=== PATIENT | female | born 2000 | race Caucasian/White ===

== ENCOUNTER 2023-12-11 22:06 | Emergency (ER) | payer OTHER, SELFPAY ==
[2023-12-11 22:15] VITALS: BP 118/78; PULSE 102; RESP 20; TEMP 36.9; O2SAT 100; BMI 25.0
--- NOTE | 2023-12-11 22:44 | ED.GENADULT ---
HPI - General Adult General Chief complaint: Unspecified Complaint, Adult Stated complaint: Swelling post shot L shoulder Time Seen by Provider: 12/11/23 22:29 History of Present Illness HPI narrative: This 23-year-old female comes in with pain, redness, and swelling with warmth in her left upper arm around the area where she received a pneumonia vaccination yesterday. She has an area of erythema that is approximately 8 cm in diameter around the area where the injection was placed. There is increased warmth and some swelling. She does not report any fevers. She states that her arm is painful in this area. Related Data Home Medications ?Medication ?Instructions ?Recorded ?Confirmed norgestimate-ethinyl estradiol 1 tab PO DAILY 12/11/23 12/11/23 0.18 mg/0.215mg/0.25mg-35 mcg(28)tablet (Tri-Catrachita) Allergies Allergy/AdvReac Type Severity Reaction Status Date / Time No Known Drug Allergies Allergy Verified 12/11/23 22:20 Review of Systems Status of ROS: Reports: 10 or more systems reviewed and unremarkable except as noted in History and below Narrative: Constitutional: No fevers, no weight gain or loss. Eyes: No discharge. No vision changes. HENT: No congestion, no sore throat, no ear pain. Cardiovascular: No chest pain, no palpitations. Respiratory: No shortness of breath, no wheezes, no cough. Gastrointestinal: No abdominal pain, no vomiting, no diarrhea. Genitourinary: No dysuria, no hematuria. Musculoskeletal: Normal range of motion. Skin: No rashes, no pruritis. Neurological: No dizziness, weakness, sensory change, speech change. Endo/Heme/Allergies: No bruising or bleeding. No polydipsia. Pysch: no suicidality, no anxiety, no insomnia. All other systems reviewed and are negative. Exam Narrative: Exam Narrative: Constitutional: Well-developed, well-nourished, no acute distress. HEENT: Normocephalic, atraumatic. Neck: Normal range of motion. Nontender. Supple. Heart: Intact distal pulses. Lungs: No chest discomfort. No wheezes, rhonchi, or rales. Abdomen: Nontender. Back: Normal range of motion. Extremities: Normal range of motion. Left upper extremity overlying the deltoid muscle has an area of erythema with increased warmth and mild swelling typical of cellulitis. This occupies an area approximately 8 cm in diameter. Skin: Intact. No rash. Warm. No erythema or pallor. Neurologic: No altered sensation. No weakness. Alert and oriented. Psychiatric: No suicidality. No anxiety or depression. No insomnia. Nursing notes and vitals signs are reviewed. Const: Vital Signs, click to edit/add: Vital Signs - 24 hr 12/11/23 22:15 Temperature 98.5 F Pulse Rate [Pulse Oximeter] 102 H Respiratory Rate 20 Blood Pressure [Ri ght Upper Arm] 118/78 Pulse Oximetry 100 Oxygen Delivery Me thod Room Air Course Vital Signs Vital signs: Initial Vital Signs Temperature 98.5 F 12/11/23 22:15 Temperature Source Temporal Artery Scan 12/11/23 22:15 Pulse Rate 102 H 12/11/23 22:15 Respiratory Rate 20 12/11/23 22:15 Blood Pressure 118/78 12/11/23 22:15 Blood Pressure Mean 91 12/11/23 22:15 Blood Pressure Position Sitting 12/11/23 22:15 Pulse Oximetry 100 12/11/23 22:15 Oxygen Delivery Method Room Air 12/11/23 22:15 Vital Signs Temperature 98.5 F 12/11/23 22:15 Pulse Rate 102 H 12/11/23 22:15 Respiratory Rate 20 12/11/23 22:15 Blood Pressure 118/78 12/11/23 22:15 Pulse Oximetry 100 12/11/23 22:15 Oxygen Delivery Method Room Air 12/11/23 22:15 Temperature 98.5 F 12/11/23 22:15 Pulse Rate 102 H 12/11/23 22:15 Respiratory Rate 12/11/23 22:15 Blood Pressure 118/78 12/11/23 22:15 Pulse Oximetry 100 12/11/23 22:15 Oxygen Delivery Method Room Air 12/11/23 22:15 Medical Decision Making MDM Narrative Medical decision making narrative: This patient has some sort of reaction to an injection that occurred yesterday. It could be an allergic reaction but it does show more suspicious and typical findings of a cellulitis. The patient received an [employer] prescription for Keflex. I described signs and symptoms of worsening condition that would indicate a need for return and re-evaluation. Discharge Plan Discharge Clinical Impression: Cellulitis Patient Disposition: Home, Self-Care Condition: Stable Additional Instructions: Take medication as prescribed. Use pres-oxm-rldozlb medicines for pain relief also as needed and directed. Return if worsening. Prescriptions: No Action norgestimate-ethinyl estradiol [Tri-Catrachita] 0.18/0.215/0.25 mg-35 mcg (28) tablet 1 tab PO DAILY Follow Up/Referrals: Provider,Not a Local [Primary Care Provider] - Stand Alone Forms: Garmentory Info Instructions
[2023-12-11] MEDS: KETOROLAC 10 MG TABLET PO (22:50)
--- OUTSIDE RECORDS SUMMARY | 2023-12-11 23:04 | XMS_ITS | Encounter Summary ---
Author Organization [facility] Address [address] [place] [address] Care Team Providers Care Buckle Gluer Name Role Phone Dulce Moyer APRN, C.N.P., D.N.P. Primary C are Provider Reason for Visit * Reason Comments Immunizations Annual Exam Encounter Details Date Type Department Care Team (Latest Contact Info) Description 12/10/2023 11:30 AM CDT Comprehensive Visit Department of Family Medicine, [facility], in [place], [place] [address] [phone] Dulce Moyer APRN, C.N.P., D.N.P. [address] [phone] Health Maintenance Examination Adult (Primary Dx); Test Skin Tuberculosis; Attention Deficit Disorder Inattentive; Anxiety Generalized Disorder; Depression Major Recurrent Moderate (HCC); Pain Thoracic Spine; Pain Neck; Diarrhea Social History Tobacco Use Types Packs/Day Years Used Date Smoking Tobacco: Former Cigarettes 2 1 Smokeless Tobacco: Never Tobacco Cessation:Counseling Given: Not Answered Alcohol Use Standard Drinks/Week Comments Yes 10 (1 standard drink = 0.6 oz pu re alcohol) 2-3 times per week [facility] Utilities Answer Date Recorded In the past 12 months has th e e(ye)BRAIN, gas, oil, or water Project Travel threatened to shut off services in your home? No 05/07/2023 Humiliation, Afraid, Rape, and Kick questionnair e Answer Date Recorded Within the last year, have y ou been afraid of your partner or ex-partner? No 04/22/2022 Within the last year, have y ou been humiliated or emotionally abused in other ways by your partner or ex-partner? No Within the last year, have y ou been kicked, hit, slapped, or otherwise physically hurt by your partner or ex-partner? No 04/22/2022 Within the last year, have y ou been raped or forced to have any kind of sexual activity by your partner or ex-partner? No 04/22/2022 Social Connection and Isolat ion Panel [NHANES] Answer Date Recorded In a typical week, how many times do you talk on the phone with family, friends, or neighbors? More than three times a week 04/22/2022 How often do you get togethe r with friends or relatives? More than three times a week 04/22/2022 How often do you attend [facility] or voodoo services? Never 04/22/2022 Do you belong to any clubs o r organizations such as mosque groups, unions, fraternal or athletic groups, or school groups? No 04/22/2022 How often do you attend meet ings of the clubs or organizations you belong to? Never 04/22/2022 Are you , , di vorced, , never , or living with a partner? Never 04/22/2022 AUDIT-C Answer Date Recorded Q1: How often do you have a drink containing alc ohol? 2-3 times a week 04/22/2022 Q2: How many drinks containi ng alcohol do you have on a typical day when you are drinking? 10 or more 04/22/2022 Q3: How often do you have si x or more drinks on one occasion? Weekly 04/22/2022 Overall Financial Resource Strain (CARDIA) Answe r Date Recorded How hard is it for you to pa y for the very basics like food, housing, medical care, and heating? Not hard at all 04/22/2022 PHQ-2 Answer Date Recorded PHQ-2 Score 2 12/10/2023 [facility] Occupational Stress Questionnaire Answer Date Recorded Do you feel stress - tense, restless, nervous, or anxious, or unable to sleep at night because your mind is troubled all the time - these days? Rather much 04/22/2022 Exercise Vital Sign Answer Date Recorde d On average, how many days pe r week do you engage in moderate to strenuous exercise (like a brisk walk)? 2 days 05/07/2023 On average, how many minutes do you engage in exercise at this level? 30 min 05/07/2023 Hunger Vital Sign Answer Date Recorded Within the past 12 months, y ou worried that your food would run out before you got the money to buy more. Never true 05/07/19 Within the past 12 months, t he food you bought just didn't last and you didn't have money to get more. Never true 05/07/2023 PRAPARE - Transportation Answer Date Re corded In the past 12 months, has l ack of transportation kept you from medical appointments or from getting medications? No 04/15 In the past 12 months, has l ack of transportation kept you from meetings, work, or from getting things needed for daily living? No 05/07/2023 Depression Answer Date Recor ded PHQ-9 Total Score (max 27) 8 12/09 Nutrition Answer Date Recorded On average, how many serving s of fruits and vegetables do you eat per day (serving size is equal to 1 cup or approximately the size of a tennis ball)? 3-5 05/07/2023 Dental Answer Date Recorded Dental: Regular Dentist Yes 06/15/19 Employment Answer Date Recorded Employment status Employed and actively working without restrictions 05/07/2023 Housing Stability Answer Date Recorded What is your living situation today? I have a [facility] place to live 05/07/2023 Education Answer Date Recorded What is the highest level of school you have completed or the highest degree you have received? 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 Sexual Orientation Straight 09/03/2021 8: 08 AM CDT documented as of this encounter Last Filed Vital Signs Vital Sign Reading Time Taken Comments Blood Pressure 107/70 12/10/2023 11:16 AM CDT Average Pulse 93 12/10/2023 11:16 AM CDT Temperature 36.3 ??C (97.4 ??F) 12/10/2023 1 1:16 AM CDT Respiratory Rate - - Oxygen Saturation - - Inhaled Oxygen Concentration - - Weight 70.3 kg (154 lb 15.7 oz) 024 11:16 AM CDT Height 167 cm (5' 5.75) 12/10/2023 11: 16 AM CDT Body Mass Index 25.21 12/10/2023 11:16 AM CDT documented in this encounter Patient Instructions * Patient Instructions* Dulce Moyer APRN, C.N.P., D.N.P. - 12/10/2023 11:30 AM CDT Images from the original note were not included. Screening Tests for Cervical Cancer Cervical Cancer Screening Tests A Pap test screens for cervical cancer. It can be done along with a pelvic exam. A Pap test collects cells from your cervix. The cervix is the lower, narrow end of your uterus that???s at the top of your vagina. See Figure 1. The collected cells are put into a bottle filled with liquid. They are then sent to a lab where they are looked at. The study of cells like this is called cytology. Depending on your age, a Pap test may be done along with a test for human papillomavirus. This virus is commonly called HPV. HPV infection is a common sexually transmitted infection. It can cause cell changes on your cervix.The Pap and HPV tests together screen for precancerous changes in your cervical cells. Screening for precancerous cells is the first step in stopping the possible development of cervical cancer. When to screen for cervical cancer Screening for cervical cancer is recommended starting between the ages of 21 and 25 and continuing through 65 years old for people with a cervix. From ages 21 up to 25, screening is recommended every three years with a Pap test. From ages 25 up to 30, HPV testing with or without a Pap every 5 years is an option. From ages 30 through 65, screening with a Pap test and an HPV test done at the same time is recommended every five years. This is called co-testing. Alternatively, HPV testing can be performed, and if the HPV testing is positive then a Pap test is done on the same collection. HPV testing alone is recommended every five years. Pap testing alone is recommended every three years. A Pap test alone is recommended every three years only when HPV testing is not also available. If you are over age 65 and you have not had irregular screening results and have not missed a screening, you no longer need to screen. However, if you have had abnormal results, continue doing screenings until your health care provider tells you it is safe to stop. When you have a medical condition or treatment that causes your immune system to be suppressed or weakened, follow what your provider tells you about a safe screening schedule. Also follow the adviceof your care provider if you have missed screenings. If you have any of the following factors, your health care provider may want you to have additionaltesting. A diagnosis of cervical cancer or a cervical biopsy that shows precancerous cells. A positive HPV test or an irregular Pap test result in the last 10 years. Exposure to a synthetic estrogen hormone called diethylstilbestrol, or JOSHUA, before . HIV infection. Weakened immune system because of an organ transplant, chemotherapy or chronic corticosteroid use. When to stop screening for cervical cancer Talk about your screening options with your health care provider. In certain situations, you and your health care provider may decide to stop cervical cancer screening. These situations may include: After total hysterectomy, which is the surgical removal of the uterus and cervix. If you had a total hysterectomy for a noncancerous condition, such as uterine fibroids, you may be able to stop routine screening tests. But if your hysterectomy was for a precancerous or cancerous condition, your care provider may want you to continue testing. Or if you had precancerous cervical treatment in the last 25 years, your provider may want you to continue testing. Older age. You may consider stopping routine Pap tests when you are older. Medical guidelines suggest you can stop having tests after age 65 years if you: Have had 2 negative Pap and HPV co-tests or primary HPV tests 5 years apart in the last 10 years. Have had 3 negative Pap tests, each 3 years apart in the last 10 years. However, if within the last 25 years you have had irregular cervical biopsy results or within the last 10 years have had a positive HPV test or abnormal Pap test results, you may need to continue screening. Also, if you have a weakened immune system, you continue cervical cancer screening beyond age 65. Your cervical cancer screening appointment HPV and Pap tests are a safe way to screen for cervical cancer. However, HPV and Pap tests are not perfect. It is possible to receive false-negative results. There is no perfect test. Preparing for your cervical cancer screening appointment You don???t need to do anything to prepare for your cervical cancer screening appointment. However,it is suggested that you: Do not have sex, douche, or use any vaginal medicines or spermicidal foams, creams or jellies for 2days before a cervical cancer screening test. Do not schedule a cervical cancer screening test during your menstrual period. The test can be doneduring your menstrual period. But it is best to schedule it at another time if possible. If you have bleeding that is not part of your regular period, do not delay your test. No proven research shows doing any of these things before a cervical cancer screening test affects the results. These are suggestions to help your provider collect an adequate sample for lab testing.Do not skip your appointment even if you did not follow the above suggestions. During a cervical cancer screening exam Cervical cancer screening is done as an outpatient procedure in a medical exam room. This means youleave after the test is done. During the exam you lie on your back on an exam table with your knees bent. Your heels rest in supports called stirrups. Your health care provider gently puts an instrument called a speculum into your vagina. See Figure 1. Putting the speculum into your vagina may cause you to feel pressure in your pelvic area. The speculum holds the zaman of the vagina apart so your health care provider can see your cervix. Your care provider uses a swab to take a sample of your cervical cells. Usually this does not hurt, but you may feel some cramping. Your health care provider puts the sample of cells into a container of liquid. The sample is examined in a lab using a microscope. They may also look for HPV. Health care providers look for cell changes that show cancer or a precancerous condition. After your test, you leave and can continue your daily activities. Results of Cervical Cancer Screening Ask your health care provider when you can expect the results of your cervical cancer screening tests. Results are ready usually within a week but may take longer. A member of your health care team contacts you with the results. You may receive results by letter, by phone, or if you have chosen to receive your results online through the patient portal. Negative results If only healthy cervical cells were discovered and if HPV testing shows no HPV infection, you have a negative result. You do not need any further treatment or testing until your next cervical cancer screening is due. Positive results If your results showed that HPV is present or if unusual cells were discovered, you have a positiveresult. A positive result does not mean you have cervical cancer. Next steps depend on the type of cells discovered in your Pap test and the results of your HPV test. Unsatisfactory Pap -- This finding means that what was collected did not contain enough cells to run a Pap test. Your provider will have you return for another Pap test in 2 to 4 months. Low-grade Pap -- This finding means that early changes in your cells have been discovered. This is called mild dysplasia. If you have this result, more follow- up care and discussion with your health care provider is needed. High-grade Pap -- This finding means that your cervical cells look very different from healthy cells. This is called dysplasia. It can range from moderate to severe. If you have this result, further evaluation and testing of the cervix by colposcopy is needed. Your health care provider refers you for a follow-up colposcopy. This exam is done in the office. Your provider uses a microscope to see the surface of your cervix. That allows them to see tissue that has changed. They may also take samples of tissue to help determine next steps of treatment. HPV results -- A negative test result means that HPV was not detected. A positive test result meansthat HPV infection is present. Next steps depend on current and prior Pap and HPV results. For more information If you have questions about your condition or about the information in this material, talk with your health care provider. Getting your questions answered helps you understand what you must do for your health going forward. This material is for your education and information only. This content does not replace medical advice, diagnosis or treatment. New medical research may change this information. If you have questionsabout a medical condition, always talk with your health care provider. ?? 2021 [facility] [employer] ([employer]). All rights reserved. [id number] LactAid for lactose intolerance. Flonase (fluticasone) nasal spray. documented in this encounter H&P Notes * Dulce Moyer APRN, C.N.P., D.N.P. - 12/10/2023 11:30 AM CDT SUBJECTIVE CHIEF COMPLAINT / REASON FOR VISIT Annual preventative care visit. HISTORY OF PRESENT ILLNESS Dang Recinos is a 23 y.o. female who presents to the clinic today for a routine preventative care appointment. Previous labs are reviewed. Health maintenance reviewed and discussed. She needs Physical, updated immunization record and PPD test for school. Also have complaints upper/mid back and cervical pain. She feels this due to her large breasts. When she was younger she did go to chiropractor every week, but unable to do that now. She has started doing some exercises and back strengthening. She is also having irregular bowel movements with significant diarrhea. Health Maintenance Due Topic Date Due Cervical Cancer Screening Never done Hearing Screening during Well Child Visit Never done TB Screening during Well Child Visit Never done Hepatitis C Screening Never done COVID-19 Vaccine (2022- season) 2022 The following portions of the patient's history were reviewed and updated as appropriate: allergies, current medications, family history, medical history, social history, surgical history and problemlist. MEDICAL HISTORY Patient Active Problem List Diagnosis Date Noted Lymphadenopathy Cervical 07/29/2021 Anxiety Generalized Disorder 03/15/2020 Alcohol Mild Use Disorder (Abuse) Uncomplicated 03/15/2020 Depression Major Recurrent Moderate (HCC) 06/09/2017 Attention Deficit Disorder Inattentive 10/12/2012 CURRENT MEDICATIONS Current Outpatient Medications Medication Sig Dispense Refill Tri-Estarylla 0.18/0.215/0.25 mg-35 mcg (28) per tablet take 1 tablet by mouth daily 84 tablet 4 valACYclovir (VALTREX) 500 mg tablet Take 1 tablet (500 mg total) by mouth daily. 90 tablet 3 citalopram (CeleXA) 10 mg tablet Take 1 tablet (10 mg total) by mouth daily. 30 tablet 0 citalopram (CeleXA) 20 mg tablet Take 1 tablet (20 mg total) by mouth daily. 90 tablet 0 nicotine polacrilex (NICORETTE) 2 mg gum Chew 1 each (2 mg total) as needed for smoking cessation. Chew briefly until tingling feeling and peppery taste appear, then park between cheek and gum. 190 each 11 No current facility-administered medications for this visit. PHQ-2 Score: 2 REVIEW OF SYSTEMS Gastrointestinal: Positive for diarrhea. OBJECTIVE VITAL SIGNS BP 107/70 (BP Location: Right arm, Patient Position: Sitting, Cuff Size: Regular) Comment: Average Pulse 93 Temp 36.3 ??C (Temporal) Ht 167 cm Wt 70.3 kg LMP 10/16/2023 (Within Days) No BMI 25.21 kg/m?? PHYSICAL EXAMINATION General: Alert, pleasant female appearing in no acute distress. Neurologic: Oriented x 3, responds appropriately to questions and follows commands without difficulty. Pupils equal and reactive to light. Cranial nerves 2-12 grossly intact. Extraocular movements intact. Muscle tone and strength normal and equal bilaterally, without weakness or involuntary movements. HEENT: Normocephalic, atraumatic. Sclerae clear without injection. Conjunctivae without drainage, erythema or matting. Normal auditory canals and external ears. Tympanic membranes pearly bilaterally,nontender. Oropharynx moist and pink, without exudate. Normal buccal mucosa. Dental hygiene adequate. Neck: Supple without lymphadenopathy. No thyromegaly. Heart: Normal S1, S2 with regular rate and rhythm. No murmurs, rubs, or clicks heard. Lungs: Clear to auscultation bilaterally posteriorly without rhonchi, wheezes, or crackles. No cough on exam today. Respirations are easy and unlabored. Abdomen: Soft, nondistended, nontender to palpation without palpable masses or organomegaly. Bowel sounds positive in all 4 quadrants. Genitourinary: deferred Musculoskeletal: Back is straight and nontender. Full range of motion of upper and lower extremities. No bony deformities. No upper or lower extremity edema or cyanosis. Radial and dorsalis pedis pulses +2 bilaterally. Skin: Warm, dry, and intact without rashes. Psychiatric: Appropriate mood and affect. Makes good eye contact. Dressed appropriately. Contributes meaningfully to conversation. ASSESSMENT / PLAN 1. Test Skin Tuberculosis Mantoux test administered today. Will read on Friday morning 12/12. - TB Skin Test - Nursing 2. Attention Deficit Disorder Inattentive Stable. She is on Strattera for this. She does not take during the summer as she feels she can function well enough outside of school without it. She does still have this available to restart once she returns to school next week. She will notify me when she is due for refills. 3. Anxiety Generalized Disorder 4. Depression Major Recurrent Moderate (HCC) Discontinued Wellbutrin as she was having facial skin breakouts on this. Was previously on Lexapro but discontinued due to adverse side effects as well. Will trial citalopram. Will start at 10 mg daily and if no significant adverse side effects after 1-2 weeks can increase to 20 mg daily. Patient will follow-up via portal if she feels this is working well and would like to continue. - citalopram (CeleXA) 10 mg tablet; Take 1 tablet (10 mg total) by mouth daily. Dispense: 30 tablet; Refill: 0 - citalopram (CeleXA) 20 mg tablet; Take 1 tablet (20 mg total) by mouth daily. Dispense: 90 tablet; Refill: 0 5. Health Maintenance Examination Adult Discussed routine health prevention including wearing sunscreen when outdoors, 100% seatbelt use, healthy diet including limiting carbs and fats, exercise at least 30 minutes 5 days a week, smoke andcarbon monoxide detectors in the home, and if guns are in the home ensuring they are in a locked and secured area. Uses seat belt: Yes Tdap: Up-to-date Influenza: not due Pneumococcal 20: completed today Zoster: Not applicable Dental visits: Regular. Has smoke detectors, fire extinguishers, and carbon monoxide detectors at home for safety: Yes Feels safe at home and at work: Yes History of depression: No Hepatitis C screening: Not applicable. HIV screening: Declined, low risk. Fasting lipid panel: not due Colonoscopy: not due Mammogram: not due Pap: discussed need for cervical cancer screening. Encouraged patient to schedule appointment for this and will try a dose Ativan prior to the appointment. Fasting blood sugar: not due 6. Pain Thoracic Spine 7. Pain Neck Likely musculoskeletal due to larger breasts causing strain on the back. Discussed continuing with back stretches and strengthening exercises as well as using a supportive bra and trying to maintain good posture. Can consider heat and massage and/or chiropractic again as well to help with symptoms. 8. Diarrhea Discussed possible causes of diarrhea and loose stools and that IBS is generally a diagnosis of exclusion. Through discussion it was found that patient does have a history of lactose intolerance and from a young age did not drink milk. However she does eat cheese on a regular basis. Discussed that this certainly could be the cause persistent and intermittent diarrhea. Would recommend trialing a lactose-free diet 2-4 weeks and seeing if symptoms improve prior to any further workup. Patient is in agreement with the plan of care from today's visit and further questions/concerns aredenied. Dulce oMyer APRN, Jami.N.Zuhair, D.N.P. documented in this encounter Plan of Treatment Upcoming Encounters Date Type Department Care Team (Late st Contact Info) Description 12/13/2023 9:00 AM CDT Nurse Only Department of Family Medicine, [facility], in [place], [place] [address] [phone] documented as of this encounter Visit Diagnoses Diagnosis Health Maintenance Examination Adult- Primary Test Skin Tuberculosis Attention Deficit Disorder Inattentive Anxiety Generalized Disorder Depression Major Recurrent Moderate (HCC) Pain Thoracic Spine Pain Neck Diarrhea documented in this encounter Additional Health Concerns Assessment Noted Time PHQ-9 Depression Total Score: 8 12/10/19 24 11:11 AM CDT documented as of this encounter Care Teams Buckle Gluer Relationship Specialty Start Date End Date Dulce Moyer APRN, C.N.Zuhair, D.N.P. [address] [phone] PCP - General 11/02/20 documented as of this encounter
--- OUTSIDE RECORDS SUMMARY | 2023-12-11 23:04 | XMS_ITS | Encounter Summary ---
Author Organization [facility] Address [address] [place] [address] Care Team Providers Care Senior Sous Chef Name Role Phone Dulce Moyer APRN C.N.P., D.N.P. Primary C are Provider Encounter Details Date Type Department Care Team (Late Contact Info) Description 12/28/2014 Historical Ophthalmology [facility] Nany Gaines [address] [phone] Social History Tobacco Use Types Packs/Day Years Used Date Smoking Tobacco: Never Assessed Sex and Gender Information Value Date Recorded Sex Assigned at Female 05/07/2023 2:40 PM VISUAL ARTIST Gender Identity Female 05/07/2023 2:40 PM VISUAL ARTIST Sexual Orientation Straight 09/03/2021 8: 08 AM CDT documented as of this encounter Progress Notes * Nany Gaines, C.O.A. - 12/28/2014 8:44 AM CDT Contact Lens Exam HISTORY OF PRESENT ILLNESS trials sent home CDM Reports - EYECL Id: [id number] Status: Fnl documented in this encounter Plan of Treatment Upcoming Encounters Date Type Department Care Team (Late Contact Info) Description 12/13/2023 9:00 AM CDT Nurse Only Department of Family Medicine, [facility], in [place], [place] [address] [place] [phone] documented as of this encounter Visit Diagnoses Not on filedocumented in this encounter Additional Health Concerns Infection Onset Date Last Indicated Resolved Time COVID19 Pending 03/20/2021 03/20/2021 03/21/2021 2 :24 AM VISUAL ARTIST COVID19 Pending 03/23/2021 03/23/2021 03/24/2021 1 :01 AM VISUAL ARTIST COVID19 Pending 04/26/2021 04/26/2021 04/27/2021 4 :37 AM VISUAL ARTIST COVID19 04/26/2021 04/26/2021 05/16/2021 5:55 AM VISUAL ARTIST COVID19 Pending 10/05/2021 10/09/2021 10/09/2021 9 :20 PM CDT COVID19 Pending 02/18/2022 02/18/2022 02/18/2022 4 :15 PM VISUAL ARTIST COVID19 Pending 02/18/2022 02/18/2022 02/18/2022 5 :02 PM VISUAL ARTIST documented as of this encounter Care Teams Senior Sous Chef Relationship Specialty Start Date End Date Dluce Moyer APRN, C.N.P., D.N.P. [address] [phone] PCP - General 11/02/20 documented as of this encounter
--- OUTSIDE RECORDS SUMMARY | 2023-12-11 23:04 | XMS_ITS ---
Author Organization [facility] Address [address] [place] [address] Care Team Providers Care Law Enforcement Officer Name Role Phone Unavailable Unavailable Unavailable Surgery Details Not on file Complications Check Surgery Details section. Procedure Estimated Blood Loss Check Surgery Details section. Procedure Findings Check Surgery Details section. Procedure Specimens Taken Check Surgery Details section.
--- OUTSIDE RECORDS SUMMARY | 2023-12-11 23:04 | XMS_ITS | Clinical Summary ---
Author Organization [facility] Address [address] [place] [address] Care Team Providers Care Field Service Rep Name Role Phone Dulce Moyer APRN, C.N.P., D.N.P. Primary C are Provider Source Comments Patient records contain information from all sites at [facility]. For routine questions regarding patient records, call [phone] during business hours, M-F 8:00 AM - 5:00 PM Central Time. Record requests for emergency care only can be directed to [phone] at any time.[facility] Allergies No known active allergies Medications Medication Sig Dispensed Refills Start Date End Date Status valACYclovir (VALTREX) 500 mg tabletIndications :Herpes Simplex Labialis Take 1 tablet (500 mg total) by mouth daily. 90 tablet 3 06/28/2022 Active nicotine polacrilex (NICORETTE) 2 mg gumIndications:Ni cotine Dependence Other Tobacco Product Chew 1 each (2 mg total) as needed for smoking cessation. Chew briefly until tingling feeling and peppery taste appear, then park between cheek and gum. 190 each 11 12/10/2022 Active Tri-Estarylla 0.18/0.215/0.25 mg-35 mcg (28) per tabletIndications :Counseling Control take 1 tablet by mouth daily 84 tablet 4 06/03/2023 Active citalopram (CeleXA) 10 mg tabletIndications :Anxiety Generalized Disorder,Depressi on Major Recurrent Moderate (HCC) Take 1 tablet (10 mg total) by mouth daily. 30 tablet 12/10/2023 Active citalopram (CeleXA) 20 mg tabletIndications :Anxiety Generalized Disorder,Depressi on Major Recurrent Moderate (HCC) Take 1 tablet (20 mg total) by mouth daily. 90 tablet 12/10/2023 Active buPROPion XL (WELLBUTRIN XL) 150 mg 24 hr tabletIndications :Anxiety Generalized Disorder,Depressi on Major Recurrent Moderate (HCC) Take 1 tablet (150 mg total) by mouth daily. 90 tablet 3 05/07/2023 12/10/2023 Discontinued buPROPion (WELLBUTRIN) 75 mg tabletIndications :Anxiety Generalized Disorder,Depressi on Major Recurrent Moderate (HCC) Take 1 tablet (75 mg total) by mouth daily. Take 1 tablet daily for 7 days, then increase to 150 mg daily. 14 tablet 05/07/2023 12/10/2023 Discontinued Active Problems Problem Noted Date Diagnosed Date Lymphadenopathy Cervical 07/29/2021 Anxiety Generalized Disorder 03/15/2020 Alcohol Mild Use Disorder (Abuse) Uncomplicated 03/15/2020 Depression Major Recurrent Moderate 06/09/2017 Attention Deficit Disorder Inattentive 3 Resolved Problems Problem Noted Date Diagnosed Date Resolved Date Adjustment Disorder Mixed Emotion And Conduct 06/09/19 18 01/20/2020 Acne Vulgaris 03/08/2016 01/20/2020 Encounters Date Type Department Care Team Description 12/10/2023 11:30 AM CDT Comprehensive Visit Department of Family Medicine, [facility], in [place], [place] [address] [place] [phone] Dulce Moyer APRN, C.N.P., D.N.P. Health Maintenance Examination Adult (Primary Dx); Test Skin Tuberculosis; Attention Deficit Disorder Inattentive; Anxiety Generalized Disorder; Depression Major Recurrent Moderate (HCC); Pain Thoracic Spine; Pain Neck; Diarrhea from Last 3 Months Immunizations Name Administration Dates Next Due 4vHPV (discontinued) 08/31/2015,03/07/2015,12/21 DTaP (Infanrix, Tripedia) 12/18/2005,,2002,2001 DTaP, Unspecified 11/17/2007 HepA Pediatric/Adolescent 11/17/2007,05/12/2007 Hib, Unspecified 12/18/2005 Hib-HepB 02/10/2003,2002,2002 IPV 11/17/2007, 3,2002,2001 Influenza Laiv (Nasal) (Discontinued) 02/07/2012 Influenza, Injectable, Quadrivalent 03/07/2015 Influenza, Unspecified 01/05/2020,03/07/2015, MCV4 (Menactra)(Discontinued) 12/17/2019, 014 MMR 11/17/2007,12/18/2005 PCV20 12/10/2023 PCV7 (discontinued) 02/10/2003,2002,2001 PPD Test 12/10/2023 SARS-COV-2 (COVID-19) - MODERNA(Discontinued) 06/01/2020,05/04/2020 Tdap 12/21/2013 EDGAR 11/17/2007,02/10/2003 influenza vaccine quad (FLUZONE/FLUARIX) (6 months and older)(PF) 01/07/2020 Family History Medical History Relation Name Comments ADD / ADHD Brother Trayton Hypertension Father guille Depression Father's Sister Ny Lymphoma Father's Sister Ny Migraines Father's Sister Ny Depression Paternal Grandmother rené Relation Name Status Comments Brother Trayton Father guille Father's Sister Ny Paternal Grandmother rené Social History Tobacco Use Types Packs/Day Years Used Date Smoking Tobacco: Former Cigarettes 2 1 Smokeless Tobacco: Never Tobacco Cessation:Counseling Given: Not Answered Alcohol Use Standard Drinks/Week Comments Yes 10 (1 standard drink = 0.6 oz pu re alcohol) 2-3 times per week [facility] Utilities Answer Date Recorded In the past 12 months has e Issue, [employer], or water [employer] threatened to shut off services in your [...] week 04/22/2022 How often do you attend chur ch or adventism services? Never 04/22/2022 Do you belong to any clubs o r organizations such as sabianism groups, unions, fraternal or athletic groups, or [...] Answer Date Recorded PHQ-2 Score 2 12/10/2023 [facility] of Occupat ional Health - Occupational Stress Questionnaire Answer Date [...] your living situation today? I have a [facility] place to live 05/07/2023 Education Answer Date Recorded What is the highest level of school you have completed or the highest degree you have received? Associate degree: academic program 04/22/2022 Sex and Gender Information Value Date Recorded Sex Assigned at Female 05/07/2023 2:40 PM LEARNING ANALYST Gender Identity Female 05/07/2023 2:40 PM LEARNING ANALYST Sexual Orientation Straight 09/03/2021 8: 08 AM CDT Last Filed Vital Signs Vital Sign Reading Time Taken Comments Blood Pressure 107/70 12/10/2023 11:16 AM CDT Average Pulse 93 12/10/2023 11:16 AM CDT Temperature 36.3 ??C (97.4 ??F) 12/10/2023 1 1:16 AM CDT Respiratory Rate 16 04/26/2022 8:21 AM LEARNING ANALYST Oxygen Saturation 97% 03/25/2022 2:56 PM LEARNING ANALYST Inhaled Oxygen Concentration - - Weight 70.3 kg (154 lb 15.7 oz) 08/28/2 024 11:16 AM CDT Height 167 cm (5' 5.75) 12/10/2023 11: 16 AM CDT Body Mass Index 25.21 12/10/2023 11:16 AM CDT Plan of Treatment Upcoming Encounters Date Type Department Care Team (Late st Contact Info) Description 12/13/2023 9:00 AM CDT Nurse Only Department of Family Medicine, [facility], in [place], [place] [address], [place] [phone] Health Maintenance Due Date Last Done Comments Cervical Cancer Screening 2002 Chlamydia and Gonorrhea Screening 2002 HIV Screening 2002 Hearing Screening during Wel l Child Visit 2002 Hepatitis C Screening 2002 TB Screening during Well Chi ld Visit 2002 1 week Well Child Check-Up 2002 1 month Well Child Check-Up 2002 2 month Well Child Check-Up 2002 4 month Well Child Check-Up 2002 6 month Well Child Check-Up 2002 9 month Well Child Check-Up 2002 12 month Well Child Check-Up 2002 15 month Well Child Check-Up 03/19/2003 18 month Well Child Check-Up 06/18/2003 2 year Well Child Check-Up 12/19/2003 30 month Well Child Check-Up 06/17/2004 3 year Well Child Check-Up 12/18/2004 4 year Well Child Check-Up 12/18/2005 5 year Well Child Check-Up 12/18/2006 6 year Well Child Check-Up 12/19/2007 7 year Well Child Check-Up 12/18/2008 8 year Well Child Check-Up 12/18/2009 9 year Well Child Check-Up 12/18/2010 10 year Well Child Check-Up 12/19/2011 11 year Well Child Check-Up 12/18/2012 12 year Well Child Check-Up 12/18/2013 13 year Well Child Check-Up 12/18/2014 14 year Well Child Check-Up 12/19/2015 15 year Well Child Check-Up 12/18/2016 16 year Well Child Check-Up 12/18/2017 17 year Well Child Check-Up 12/18/2018 18 year Well Child Check-Up 12/19/2019 19 year Well Child Check-Up 12/18/2020 20 year Well Child Check-Up 12/18/2021 COVID-19 Vaccine (3 - 2022-2 4 season) 2022 06/01/2020, 05/04/2020 DTaP,Tdap,and Td Vaccines (7 - Td or Tdap) 12/22/2023 12/21/2013, 11/17/2007, 12/18/2005, Additional history exists Influenza Vaccine (#1) 2024 , 01/05/2020, 03/07/2015, Additional history exists Depression Monitoring (PHQ-9) 04/10/2024 12/10/2023 Hepatitis B Vaccines Completed 02/10/2003, 2002, 2002 Hepatitis A Vaccines Completed 11/17/2007, 05/12/19 08 Varicella Vaccines Completed 11/17/2007, 02/10/2003 HPV Vaccines Completed 08/31/2015, 02/13, 12/21/2013 Meningococcal Vaccine Completed 12/17/2019, 014 23 year Well Child Check-Up Completed 12/10/2023 Pneumococcal vaccine (0-64 years) Completed 12/10/2023, 02/10/2003, 2002, Additional history exists Well Child Check-Up (WCC) Completed Well Child Check-Up Complete d in Past Year Completed 12/10/2023 Care Teams Field Service Rep Relationship Specialty Start Date End Date Dulce Moyer APRN, C.N.P., D.N.P. [address] [place] [phone] [facility] - General 11/02/20
--- OUTSIDE RECORDS SUMMARY | 2023-12-11 23:04 | XMS_ITS | Clinical Summary ---
Author Organization [facility] Address [place], [place] [address] Care Team Providers Care Lithopone Charger Name Role Phone Dulce Moyer NP Primary Care Provider [phone] Allergies No known active allergies Medications Medication Sig Dispensed Refills Start Date End Date Status escitalopram oxalate (LEXAPRO ORAL) Take 15 mg by mouth. Active ascorbic acid, vitamin C, (VITAMIN C) 500 mg tablet Take 500 mg by mouth once daily. Active atomoxetine (STRATTERA) 40 mg capsule Take 80 mg by mouth once daily. 07/20/2021 Active cholecalciferol (VITAMIN D3) 1,000 unit tablet Take 25 mcg by mouth once daily. Active Cranberry 400 mg capsule Take 400 mg by mouth once daily. Active propranoloL (INDERAL) 10 mg tablet Take 1 Tablet by mouth once daily. 08/10/2021 Active valACYclovir (VALTREX) 500 mg tablet Take 500 mg by mouth once daily. 02/09/2021 Active oxyCODONE (ROXICODONE) 5 mg/5 mL solutionIndications:Po st-op pain Take 5-10 mL (5-10 mg) by mouth every 4 hours if needed for Pain. 250 mL 10/11/2021 Active ondansetron (ZOFRAN ODT) 8 mg disintegrating tabletIndications:Naus ea Place 1 Tablet (8 mg) on the tongue every 8 hours if needed for Nausea/Vomiting. 10 Tablet 10/11/2021 Active lidocaine 4% topical 4 % (40 mg/mL) external solutionIndications:Po st-op pain Apply topically to affected area(s) each time if needed (pain). 2 sprays each tonsil fossa every 2 hours if needed for pain 50 mL 1 10/11/2021 Active medical supply, miscellaneous (OTC PRODUCT, AMB RX,) use with lidocaine 1 Each 10/11/2021 Active Active Problems No known active problems Social History Tobacco Use Types Packs/Day Years Used Date Smoking Tobacco: Former Cigarettes Passive Smoke Exposure: Past Smokeless Tobacco: Current Tobacco Cessation:Ready to Q uit: Not Asked; Counseling Given: Not Answered Comments:E-cig Alcohol Use Standard Drinks/Week Comments No 0 (1 standard drink = 0.6 oz pur e alcohol) Sex and Gender Information Value Date Recorded Sex Assigned at Not on file Gender Identity Not on file Sexual Orientation Not on file Obstetrics History Last Filed Vital Signs Vital Sign Reading Time Taken Comments Blood Pressure 114/62 10/11/2021 11:50 AM CDT Pulse 86 10/11/2021 12:05 PM CDT Temperature 36.2 ??C (97.1 ??F) 10/11/2021 1 1:30 AM CDT Respiratory Rate 16 10/11/2021 12:0 5 PM CDT Oxygen Saturation 100% 10/11/2021 12: 05 PM CDT Inhaled Oxygen Concentration - - Weight 64.7 kg (142 lb 10.2 oz) 05/08/2022 7:07 AM ROOMING HOUSE KEEPER Height 170 cm (5' 6.93) 10/01/2021 7:03 PM CDT Body Mass Index - - Plan of Treatment Health Maintenance Due Date Last Done Comments Tdap 2013 Depression screening for age 12+ 2014 HIV for age 15-65 2017 HPV series for age 9-26 (1 - 3-dose series) 2017 BMI (ht and wt on same day) for age 18+ 01/18/2020 Hepatitis C screening for ag e 18-79 01/18/2020 Tetanus booster 2022 COVID-19 vaccine series (2022- season) 2022 06/01/2020, 05/08/2020 Pap test for age 21-65 2023 Influenza for age 9-49 12/14/2023 Meningococcal series for age 11-21 Aged Out No longer eligible b ased on patient's age to complete this topic Pneumococcal series for age 6-64 Aged Out No longer eligible b ased on patient's age to complete this topic Advance Directives * Full Code (Latest Code Status on File) Date Activated Date Inactivated Comments 10/11/2021 8:04 AM 10/11/2021 2:24 PM Question Answer Comments Code Status Discussion: Reviewed Preferences Care Teams Lithopone Charger Relationship Specialty Start Date End Date Dulce Moyer NP [address] [phone] PCP - General Nurse Practitioner - Family 05/06/22
--- OUTSIDE RECORDS SUMMARY | 2023-12-11 23:04 | XMS_ITS | Clinical Summary ---
Author Organization [facility] Address [address] [place] [id number] Phone CareEverywhereSuppor Care Team Providers Care Dyed Yarn Operator Name Role Phone Unavailable Primary Care Provider Unavailabl e Encounters Date Type Department Care Team Description 11/12/2023 Claims Summary [facility] [address] [place] [address] Provider, Claims Summary MD Bonifacio from Last 3 Months Social History Tobacco Use Types Packs/Day Years Used Date Smoking Tobacco: Never Assessed Sex and Gender Information Value Date Recorded Sex Assigned at Not on file Gender Identity Not on file Sexual Orientation Not on file Plan of Treatment Not on file
--- OUTSIDE RECORDS SUMMARY | 2023-12-11 23:04 | XMS_ITS | Referral Summary ---
Author Organization [facility] Address [address] [place] [address] Care Team Providers Care Collator Name Role Phone Dulce Moyer APRN, C.N.P., D.N.P. Primary C are Provider Source Comments Patient records contain information from all sites at [facility]. For routine questions regarding patient records, call [phone] during business hours, M-F 8:00 AM - 5:00 PM Central Time. Record requests for emergency care only can be directed to [phone] at any time.[facility] Encounters Date Type Department Care Team Description 12/10/2023 11:30 AM CDT Comprehensive Visit Department of Family Medicine, [facility], in [place], [place] [address] [place] [phone] Dulce Moyer APRN, C.N.P., D.N.P. Health Maintenance Examination Adult (Primary Dx); Test Skin Tuberculosis; Attention Deficit Disorder Inattentive; Anxiety Generalized Disorder; Depression Major Recurrent Moderate (HCC); Pain Thoracic Spine; Pain Neck; Diarrhea from Last 3 Months Allergies No known active allergies Medications Medication [...] 06/09/19 18 01/20/2020 Acne Vulgaris 03/08/2016 01/20/2020 Immunizations Name Administration Dates Next Due 4vHPV [...] quad (FLUZONE/FLUARIX) (6 months and older)(PF) 01/07/2020 Social History Tobacco Use Types Packs/Day Years Used Date Smoking Tobacco: Former Cigarettes 2 1 Smokeless Tobacco: Never Tobacco Cessation:Counseling Given: Not Answered Alcohol Use Standard Drinks/Week Comments Yes 10 (1 standard drink = 0.6 oz pu re alcohol) 2-3 times per week [facility] [employer] Answer Date Recorded In the past 12 months has e [employer], oil, or water [employer] threatened to shut off services in your [...] often do you attend chur ch or roman catholic services? Never 04/22/2022 Do you belong to any clubs o r organizations such as roman catholic groups, unions, fraternal or athletic groups, or [...] Answer Date Recorded PHQ-2 Score 2 12/10/2023 [facility] of Occupat ional Health - Occupational Stress [...] money to buy more. Never true 05/07/19 24 Within the past 12 months, t he [...] your living situation today? [facility] place to live 05/07/2023 Education Answer Date Recorded What is the highest level of school you have completed or the highest degree you have received? Associate degree: academic program 04/22/2022 Sex and Gender Information Value Date Recorded Sex Assigned at Female 05/07/2023 2:40 PM INSTRUCTOR GROUND SERVICES Gender Identity Female 05/07/2023 2:40 PM INSTRUCTOR GROUND SERVICES Sexual Orientation Straight 09/03/2021 8: 08 AM CDT Last Filed Vital Signs Vital Sign Reading Time Taken Comments Blood Pressure 107/70 12/10/2023 11:16 AM CDT Average Pulse 93 12/10/2023 11:16 AM CDT Temperature 36.3 ??C (97.4 ??F) 12/10/2023 1 1:16 AM CDT Respiratory Rate 16 04/26/2022 8:21 AM INSTRUCTOR GROUND SERVICES Oxygen Saturation 97% 03/25/2022 2:56 PM INSTRUCTOR GROUND SERVICES Inhaled Oxygen Concentration - - Weight 70.3 kg (154 lb 15.7 oz) 024 11:16 AM CDT Height 167 cm (5' 5.75) 12/10/2023 11: 16 AM CDT Body Mass Index 25.21 12/10/2023 11:16 AM CDT Plan of Treatment Upcoming Encounters Date Type Department Care Team (Late st Contact Info) Description 12/13/2023 9:00 AM CDT Nurse Only Department of Family Medicine, [facility], in [place], [place] [address] [place] [phone] Care Teams Collator Relationship Specialty Start Date End Date Dulce Moyer APRN, C.N.P., D.N.P. [address] [place] [phone] PCP - General 11/02/20
--- OUTSIDE RECORDS SUMMARY | 2023-12-11 23:05 | XMS_ITS | Encounter Summary ---
Author Organization [facility] Address [address] [place] [phone] Phone [email or web address] Care Team Providers Care Studio Camera Operator Name Role Phone Unavailable Primary Care Provider Unavailabl e Encounter Details Date Type Department Care Team (Late st Contact Info) Description 11/12/2023 Claims Summary [facility] [address] [place] [address] Provider, Claims Summary External, [address] [place] [address] Social History Tobacco Use Types Packs/Day Years Used Date Smoking Tobacco: Never Assessed Sex and Gender Information Value Date Recorded Sex Assigned at Not on file Gender Identity Not on file Sexual Orientation Not on file documented as of this encounter Plan of Treatment Not on file documented as of this encounter Visit Diagnoses Not on filedocumented in this encounter
[2023-12-11] MEDS: cephALEXin 500 MG CAPSULE PO (23:18)
== END 2023-12-11 23:19 | disposition home or self-care (01) ==
LOC: ED 23:02
PROVIDERS: Emergency Provider Emergency Medicine Emergency Medical Services
DX: L03.114 Cellulitis of left upper limb (principal)
CPT/HCPCS: 99283; 99284; A9270